=== PATIENT | female | born 1995 | race Two or more races ===

== ENCOUNTER 2022-03-27 17:40 | Emergency (ER) | payer MEDICAID ==
[~2022-03-27] VITALS: Ht 160 cm; Wt 46.0 kg
[2022-03-27 17:51] VITALS: BP 103/65
[2022-03-27] MEDS ORDERED: GABA-530 PO (18:49)
[2022-03-27] MEDS ORDERED: IBUP-1986 PO (18:49)
[2022-03-27] MEDS ORDERED: HYDROcodone/acetaminophen 10/325mg tab PO ONE (18:50)
[2022-03-27] MEDS ORDERED: ketorolac trometh inj. 60 MG/2 ML VIAL IM ONE (19:06)
--- NOTE | 2022-03-27 19:06 | NUR ---
po med given
== END 2022-03-27 19:18 | disposition home or self-care (01) ==
LOC: ER 17:41
DX: K08.89 Other specified disorders of teeth and supporting structures (principal)
CPT/HCPCS: 96372; 99283; J1885

== ENCOUNTER 2022-03-27 21:01 | Emergency (ER) | payer MEDICAID ==
[~2022-03-27] VITALS: Ht 167.6 cm; Wt 45.0 kg
[~2022-03-27 21:01] MED LIST: GABA-530 PO; IBUP-1986 PO
[2022-03-27] MEDS ORDERED: ondansetron 4mg rapidly disintigrating tab PO ONE (23:00)
== END 2022-03-27 23:10 | disposition home or self-care (01) ==
LOC: ER 21:02
DX: R11.0 Nausea (principal)
CPT/HCPCS: 99283